=== PATIENT | male | born 1970 | race Caucasian/White ===

== ENCOUNTER 2017-03-19 04:07 | Inpatient (IN) | payer BC ==
[~2017-03-19] VITALS: Ht 167.6 cm; Wt 86.6 kg
[2017-03-19 04:15] VITALS: BP_SYST 121
[2017-03-19] MEDS ORDERED: KETOROLAC TROMETHAMINE 30 MG VIAL IVP ONE (04:45)
[2017-03-19] MEDS ORDERED: NS 1000 ML BAG IV ONE (04:45)
[2017-03-19] MEDS ORDERED: AMOX500C2 PO (04:47)
[2017-03-19] MEDS ORDERED: IBUP-1480 PO (04:48)
[2017-03-19] MEDS ORDERED: [UNRECOGNIZED DRUG - CODE] PO (04:49)
[2017-03-19] MEDS ORDERED: ACET-2165 PO (04:49)
[2017-03-19 05:16] LABS: BASOPHILS % (AUTO) 0.2 % (0.0-2.0); HEMATOCRIT 38.8 % (36-54); HEMOGLOBIN 13.1 g/dL (14.0-18.0); LYMPHOCYTES % (AUTO) 8.4 % (20.5-51.5); MEAN CORPUSCULAR HEMOGLOBIN 31 pg (27-31); MEAN CORPUSCULAR HGB CONC 34 % (32-36); MEAN CORPUSCULAR VOLUME 93 fL (79.0-98.0); MONOCYTES # (AUTO) 1.5 K/uL (0.0-1.0); NEUTROPHILS # (AUTO) 9.4 K/uL (1.8-7.7); NEUTROPHILS % (AUTO) 78.4 % (40.0-70.0); PLATELET COUNT (AUTO) 108 K/uL (130-430); RED BLOOD CELL COUNT(AUTO) 4.19 MIL/uL (4.2-6.2); RED CELL DISTRIBUTION WIDTH 12.4 % (9.0-15.0); WHITE BLOOD COUNT (AUTO) 11.9 K/uL (4.8-10.8)
[2017-03-19 05:25] LABS: CALCIUM 8.1 mg/dL (8.4-11.0); CREATININE 1.51 mg/dL (0.55-1.30); POTASSIUM 3.2 mmol/L (3.5-5.1)
[2017-03-19 05:28] LABS: PROTHROMBIN TIME 10.7 SECS (9.5-12.5)
[2017-03-19 05:30] LABS: ALBUMIN 2.5 g/dL (3.4-4.8); TOTAL BILIRUBIN 2.6 mg/dL (0.0-1.0); TOTAL PROTEIN, SERUM 6.6 g/dL (6.4-8.3)
[2017-03-19] MEDS ORDERED: fentaNYL CITRATE/PF 100 MCG/2 ML AMP IVP ONE (06:45)
[2017-03-19] MEDS ORDERED: NACL 0.9% 2,000 ML IV ONE (06:45)
[2017-03-19 06:50] LABS: BILIRUBIN,URINE 1+ (NEGATIVE); BLOOD, URINE 2+ (NEGATIVE); CLARITY/URINE CLEAR (CLEAR); COLOR,URINE YELLOW (YELLOW); GLUCOSE,URINE NEGATIVE (NEGATIVE); KETONES,URINE NEGATIVE (NEGATIVE); LEUKOCYTE ESTERASE ,URINE NEGATIVE (NEGATIVE); NITRITE, URINE NEGATIVE (NEGATIVE); PH,URINE 5.5 (5.0-8.0); PROTEIN URINE 1+ (NEGATIVE)
[2017-03-19 07:00] LABS: BACTERIA,URINE MODERATE /HPF (None Seen); RBC,URINE 0-3 /HPF (0-3); WBC,URINE 0-3 /HPF (0-3)
[2017-03-19] MEDS ORDERED: POTASSIUM CHLORIDE 20 MEQ TAB.PRT.SR PO ONE (07:00)
[2017-03-19] MEDS ORDERED: ACETAMINOPHEN 325 MG TABLET PO PRN (07:15)
[2017-03-19] MEDS: NACL 0.9% 1,000 ML IV SCH ×4 (07:50→22:15)
[2017-03-19 07:53] VITALS: BP_SYST 115
[2017-03-19] MEDS ORDERED: cefTRIAXone 1 GM IVPB PREMIX 50 ML IV SCH (09:00)
[2017-03-19] MEDS: LEVOFLOXACIN 500 MG/D5W 100 ML IV SCH (10:27)
[2017-03-19] MEDS ORDERED: HYDROmorphone 1 MG INJ. 1 MG/ML AMPUL IVP ONE ×2 (12:30→14:15)
[2017-03-19 12:33] VITALS: BP_SYST 122
[2017-03-19] MEDS ORDERED: IBUPROFEN 800 MG TABLET PO PRN (14:00)
[2017-03-19] MEDS ORDERED: ONDANSETRON HCL 4 MG/2 ML VIAL IVP PRN (14:15)
[2017-03-19 16:06] LABS: CSF APPEARANCE CLOUDY (CLEAR); CSF GLUCOSE 51 mg/dL (40-70)
[2017-03-19 17:08] VITALS: BP_SYST 121
[2017-03-19 17:12] LABS: CSF COLOR RED (COLORLESS)
[2017-03-19 17:13] LABS: CSF PROTEIN 84 mg/dL (15-45)
[2017-03-19 17:55] LABS: BILIRUBIN,URINE NEGATIVE (NEGATIVE); BLOOD, URINE 1+ (NEGATIVE); CLARITY/URINE SL HAZY (CLEAR); COLOR,URINE YELLOW (YELLOW); GLUCOSE,URINE NEGATIVE (NEGATIVE); KETONES,URINE NEGATIVE (NEGATIVE); LEUKOCYTE ESTERASE ,URINE NEGATIVE (NEGATIVE); NITRITE, URINE NEGATIVE (NEGATIVE); PH,URINE 5.5 (5.0-8.0); PROTEIN URINE TRACE (NEGATIVE)
[2017-03-19 18:25] LABS: BARBITURATE, URINE NEGATIVE (NEG <=200); BENZODIAZEPINE, URINE NEGATIVE (NEG <=150); CANNABINOID, URINE NEGATIVE (NEG <=50); COCAINE, URINE NEGATIVE (NEG <=150); METHAMPHETAMINES SCREEN,URINE NEGATIVE (NEG <=500); OPIATE, URINE POSITIVE (NEG <=100); PHENCYCLIDINE SCREEN,URINE NEGATIVE (NEG <=25); UR TRICYCLIC ANTIDEPRESSANTS NEGATIVE (NEG <=300); URINE AMPHETAMINE NEGATIVE (NEG <=500); URINE METHADONE NEGATIVE (NEG <=200); URINE OXYCODONE SCREEN NEGATIVE (NEG <=100); URINE PROPOXYPHENE SCREEN NEGATIVE (NEG <=300)
[2017-03-19 18:40] LABS: BACTERIA,URINE FEW /HPF (None Seen); MUCUS,URINE 1+ /LPF (None Seen); WBC,URINE 0-3 /HPF (0-3)
[2017-03-19 19:06] LABS: CSF LYMPHOCYTES 14 % (40-60); CSF MONOCYTES 18 % (15-45); CSF NEUTROPHILS 68 % (0-6); CSF RED BLOOD CELL COUNT #1 77111 /uL (0-0); CSF WHITE BLOOD CELL COUNT #1 35 /uL (0-5)
[2017-03-19 19:32] LABS: CSF RED BLOOD CELL COUNT #4 1159 /uL (0-0); CSF WHITE BLOOD CELL COUNT #4 29 /uL (0-5)
[2017-03-19 19:33] LABS: CSF LYMPHOCYTES #4 12 % (40-60); CSF MONOCYTES #4 15 % (15-45); CSF NEUTROPHILS #4 73 % (0-6)
[2017-03-19 20:00] VITALS: BP_SYST 142
[2017-03-19] MEDS: HYDROmorphone 1 MG INJ. 1 MG/ML AMPUL IVP PRN (21:56)
[2017-03-19] MEDS: POTASSIUM CHLORIDE 20 MEQ/PKT PACKET PO SCH (21:58)
[2017-03-19] MEDS ORDERED: cefTRIAXone 1 GM VIAL ONE (22:02)
[2017-03-19] MEDS: ACETAMINOPHEN 325 MG TABLET PO PRN (22:03)
[2017-03-19] MEDS ORDERED: VANCOMYCIN HCL 1000 MG/VIAL IV ONE (22:03)
[2017-03-19] MEDS ORDERED: VANCOMYCIN HCL 500 MG/VIAL IV ONE (22:03)
[2017-03-19] MEDS ORDERED: ACYCLOVIR SODIUM 50 MG/ML VIAL IV ONE (22:20)
[2017-03-19] MEDS ORDERED: DIPHENHYDRAMINE INJ 50 MG/ML VIAL IVP PRN (23:00)
[2017-03-19] MEDS: ACYCLOVIR IV SCH (23:30)
[2017-03-19] MEDS: NS IV SCH (23:30)
[2017-03-20] VITALS (7 sets, daily range): BP systolic 116–130
[2017-03-20] MEDS: VANCOMYCIN HCL 1,250 MG in NS 250 ML IV SCH ×3 (01:00→22:08)
[2017-03-20] MEDS: NACL 0.9% 1,000 ML IV SCH ×4 (03:15→18:09)
[2017-03-20] MEDS ORDERED: ACYCLOVIR SODIUM 50 MG/ML VIAL IV ONE (05:59)
[2017-03-20] MEDS: NS IV SCH ×3 (06:21→22:07)
[2017-03-20] MEDS: ACYCLOVIR IV SCH ×3 (06:21→22:07)
[2017-03-20 07:31] LABS: C-REACTIVE PROTEIN QUANT 7.9 mg/dL (0-0.5); CALCIUM 7.2 mg/dL (8.4-11.0); CREATININE 1.22 mg/dL (0.55-1.30); POTASSIUM 3.5 mmol/L (3.5-5.1); TOTAL BILIRUBIN 1.2 mg/dL (0.0-1.0); TOTAL PROTEIN, SERUM 5.5 g/dL (6.4-8.3)
[2017-03-20 07:34] LABS: HEMATOCRIT 32.5 % (36-54); HEMOGLOBIN 11.1 g/dL (14.0-18.0); MEAN CORPUSCULAR HEMOGLOBIN 32 pg (27-31); MEAN CORPUSCULAR HGB CONC 34 % (32-36); MEAN CORPUSCULAR VOLUME 93 fL (79.0-98.0); PLATELET COUNT (AUTO) 139 K/uL (130-430); RED CELL DISTRIBUTION WIDTH 12.4 % (9.0-15.0)
[2017-03-20 07:56] LABS: WHITE BLOOD COUNT (AUTO) 11.9 K/uL (4.8-10.8)
[2017-03-20] MEDS: HYDROmorphone 1 MG INJ. 1 MG/ML AMPUL IVP PRN (07:58)
[2017-03-20] MEDS: POTASSIUM CHLORIDE 20 MEQ/PKT PACKET PO SCH ×2 (08:05→20:11)
[2017-03-20] MEDS: ACETAMINOPHEN 325 MG TABLET PO PRN ×2 (08:07→20:11)
[2017-03-20 08:37] LABS: ERYTHROCYTE SEDIMENTATION RATE 34 MM/HR (0-15)
[2017-03-20] MEDS: LEVOFLOXACIN 500 MG/D5W 100 ML IV SCH (09:19)
[2017-03-20 09:55] LABS: ATYPICAL LYMPHOCYTES % 3 % (0-0); BAND % (MANUAL) 3 % (0-6); BASOPHILS % (MANUAL) 0 % (0-2); EOSINOPHILS % (MANUAL) 0 % (0-7); LYMPHOCYTES % (MANUAL) 1 % (20-46); MONOCYTES % (MANUAL) 18 % (0-11)
[2017-03-20] MEDS: TEMAZEPAM 15 MG CAPSULE PO SCH (20:18)
[2017-03-21] MEDS: NACL 0.9% 1,000 ML IV SCH ×5 (00:19→18:57)
[2017-03-21 03:47] VITALS: BP_SYST 118
[2017-03-21] MEDS: NS IV SCH ×3 (05:01→21:22)
[2017-03-21] MEDS: ACYCLOVIR IV SCH ×3 (05:01→21:22)
[2017-03-21 07:46] LABS: PROTHROMBIN TIME 11.2 SECS (9.5-12.5)
[2017-03-21 07:48] VITALS: BP_SYST 131
[2017-03-21] MEDS: LEVOFLOXACIN 500 MG/D5W 100 ML IV SCH (09:34)
[2017-03-21] MEDS: ACETAMINOPHEN 325 MG TABLET PO PRN (09:36)
[2017-03-21] MEDS: POTASSIUM CHLORIDE 20 MEQ/PKT PACKET PO SCH ×2 (09:36→20:54)
[2017-03-21] MEDS ORDERED: IBUPROFEN 200 MG TABLET PO PRN (09:45)
[2017-03-21] MEDS ORDERED: DOXYCYCLINE HYCLATE 100 MG CAPSULE PO ONE (10:30)
[2017-03-21 12:58] VITALS: BP_SYST 127
[2017-03-21 17:04] VITALS: BP_SYST 124
[2017-03-21] MEDS: IBUPROFEN 600 MG TABLET PO PRN (19:49)
[2017-03-21] MEDS: DOXYCYCLINE HYCLATE 100 MG CAPSULE PO SCH (20:53)
[2017-03-21] MEDS: PANTOPRAZOLE SODIUM 40 MG TAB PO SCH (20:53)
[2017-03-21] MEDS: TEMAZEPAM 15 MG CAPSULE PO SCH ×2 (20:54→21:21)
[2017-03-22 01:06] VITALS: BP_SYST 127
[2017-03-22] MEDS: NACL 0.9% 1,000 ML IV SCH ×5 (03:49→20:34)
[2017-03-22 04:00] VITALS: BP_SYST 146
[2017-03-22 04:25] LABS: HEPATITIS A AB, IgM Negative (Negative); HEPATITIS B CORE AB, IgM Negative (Negative); HEPATITIS B SURFACE AG Negative (Negative)
[2017-03-22] MEDS: NS IV SCH ×3 (05:15→21:37)
[2017-03-22] MEDS: ACYCLOVIR IV SCH ×3 (05:15→21:37)
[2017-03-22 06:58] LABS: HEMATOCRIT 32.4 % (36-54); MEAN CORPUSCULAR HEMOGLOBIN 32 pg (27-31); MEAN CORPUSCULAR HGB CONC 34 % (32-36); MEAN CORPUSCULAR VOLUME 93 fL (79.0-98.0); PLATELET COUNT (AUTO) 204 K/uL (130-430); RED BLOOD CELL COUNT(AUTO) 3.48 MIL/uL (4.2-6.2); RED CELL DISTRIBUTION WIDTH 12.9 % (9.0-15.0); WHITE BLOOD COUNT (AUTO) 11.5 K/uL (4.8-10.8)
[2017-03-22 07:18] LABS: EBV AB VCA, IgM <36.0 U/mL (0.0-35.9)
[2017-03-22 07:25] LABS: BILIRUBIN,DIRECT 0.3 mg/dL (0.0-0.3); CALCIUM 7.5 mg/dL (8.4-11.0); CREATININE 0.99 mg/dL (0.55-1.30); TOTAL BILIRUBIN 0.7 mg/dL (0.0-1.0); TOTAL PROTEIN, SERUM 5.8 g/dL (6.4-8.3)
[2017-03-22 07:48] LABS: BASOPHILS % (MANUAL) 0 % (0-2); EOSINOPHILS % (MANUAL) 4 % (0-7); LYMPHOCYTES % (MANUAL) 25 % (20-46); MONOCYTES % (MANUAL) 5 % (0-11)
[2017-03-22] MEDS: PANTOPRAZOLE SODIUM 40 MG TAB PO SCH ×2 (08:19→20:48)
[2017-03-22] MEDS: POTASSIUM CHLORIDE 20 MEQ/PKT PACKET PO SCH ×2 (08:19→20:48)
[2017-03-22] MEDS: DOXYCYCLINE HYCLATE 100 MG CAPSULE PO SCH ×2 (08:19→20:48)
[2017-03-22 08:20] VITALS: BP_SYST 138
[2017-03-22] MEDS: IBUPROFEN 600 MG TABLET PO PRN ×2 (08:34→16:53)
[2017-03-22 09:14] LABS: EBV AB VCA, IgG <18.0 U/mL (0.0-17.9)
[2017-03-22 10:52] LABS: FERRITIN 1234 ng/mL (30-400)
[2017-03-22 11:16] LABS: VDRL, CSF Non Reactive (Non Rea:<1:1)
[2017-03-22 12:33] VITALS: BP_SYST 117
[2017-03-22] MEDS ORDERED: IOHEXOL 100 ML IV ONE (12:46)
[2017-03-22 16:52] VITALS: BP_SYST 125
[2017-03-22 19:07] LABS: ANTI NUCLEAR AB WITH REFLEX Negative (Negative)
[2017-03-22 19:45] VITALS: BP_SYST 138
[2017-03-22] MEDS ORDERED: TEMAZEPAM 15 MG CAPSULE PO SCH (21:00)
[2017-03-22] MEDS ORDERED: LOPERAMIDE HCL 2 MG CAPSULE PO ONE (21:15)
[2017-03-22] MEDS ORDERED: LACTOBACILLUS RHAMNOSUS GG 1 CAP CAPSULE PO ONE (21:15)
[2017-03-22] MEDS: metroNIDAZOLE 500 MG TABLET PO SCH (21:22)
[2017-03-22] MEDS ORDERED: LOPERAMIDE HCL 2 MG CAPSULE PO PRN (21:30)
[2017-03-23 02:25] VITALS: BP_SYST 154
[2017-03-23] MEDS: NACL 0.9% 1,000 ML IV SCH ×2 (02:57→10:08)
[2017-03-23 05:11] VITALS: BP_SYST 130
[2017-03-23] MEDS: NS IV SCH ×2 (05:32→13:42)
[2017-03-23] MEDS: ACYCLOVIR IV SCH ×2 (05:32→13:42)
[2017-03-23] MEDS: metroNIDAZOLE 500 MG TABLET PO SCH ×2 (05:38→15:37)
[2017-03-23] MEDS: IBUPROFEN 600 MG TABLET PO PRN (05:39)
[2017-03-23 06:41] LABS: BASOPHILS % (AUTO) 0.2 % (0.0-2.0); EOSINOPHILS # (AUTO) 0.2 K/uL (0.0-0.4); EOSINOPHILS % (AUTO) 1.3 % (0.0-4.0); HEMATOCRIT 32.8 % (36-54); HEMOGLOBIN 11.1 g/dL (14.0-18.0); LYMPHOCYTES % (AUTO) 23.6 % (20.5-51.5); MEAN CORPUSCULAR HEMOGLOBIN 31 pg (27-31); MEAN CORPUSCULAR HGB CONC 34 % (32-36); MEAN CORPUSCULAR VOLUME 92 fL (79.0-98.0); MONOCYTES # (AUTO) 1.2 K/uL (0.0-1.0); MONOCYTES % (AUTO) 9.8 % (1.7-9.3); NEUTROPHILS # (AUTO) 8.3 K/uL (1.8-7.7); NEUTROPHILS % (AUTO) 65.1 % (40.0-70.0); PLATELET COUNT (AUTO) 260 K/uL (130-430); RED BLOOD CELL COUNT(AUTO) 3.56 MIL/uL (4.2-6.2); RED CELL DISTRIBUTION WIDTH 12.8 % (9.0-15.0); WHITE BLOOD COUNT (AUTO) 12.7 K/uL (4.8-10.8)
[2017-03-23 06:53] LABS: CALCIUM 7.6 mg/dL (8.4-11.0); POTASSIUM 3.8 mmol/L (3.5-5.1)
[2017-03-23 08:30] VITALS: BP_SYST 131
[2017-03-23] MEDS: POTASSIUM CHLORIDE 20 MEQ/PKT PACKET PO SCH (10:08)
[2017-03-23] MEDS: DOXYCYCLINE HYCLATE 100 MG CAPSULE PO SCH (10:08)
[2017-03-23] MEDS: LACTOBACILLUS RHAMNOSUS GG 1 CAP CAPSULE PO SCH ×2 (10:08→15:37)
[2017-03-23] MEDS: PANTOPRAZOLE SODIUM 40 MG TAB PO SCH (10:08)
[2017-03-23 12:00] VITALS: BP_SYST 136
[2017-03-23 13:13] LABS: WEST NILE VIRUS, IgG, SERUM Negative (Negative)
[2017-03-23 16:45] VITALS: BP_SYST 118
[2017-03-23 17:25] VITALS: BP_SYST 118
[2017-03-23] MEDS ORDERED: ACYC400T PO (18:02)
[2017-03-23] MEDS ORDERED: DOXY-4 PO (18:03)
== END 2017-03-23 18:26 | disposition home or self-care (01) | DRG 98 ==
LOC: SED 04:07 → STU 07:01
PROVIDERS: ADMIT Internal Medicine; ATTEND Internal Medicine
PROC: 009U3ZX Drainage of Spinal Canal, Percutaneous Approach, Diagnostic (ICD-10-PCS; principal; 2017-03-19)
PROC: B01BZZZ Fluoroscopy of Spinal Cord (ICD-10-PCS; 2017-03-19)
DX: G03.0 Nonpyogenic meningitis (principal); E87.1 Hypo-osmolality and hyponatremia; B34.9 Viral infection, unspecified; R74.0 Nonspecific elevation of levels of transaminase and lactic acid dehydrogenase [LDH]; J20.9 Acute bronchitis, unspecified; E86.0 Dehydration; D69.6 Thrombocytopenia, unspecified; D64.9 Anemia, unspecified; K74.60 Unspecified cirrhosis of liver; K76.0 Fatty (change of) liver, not elsewhere classified; G47.00 Insomnia, unspecified; W57.XXXA Bitten or stung by nonvenomous insect and other nonvenomous arthropods, initial encounter; Y93.89 Activity, other specified; Y92.89 Other specified places as the place of occurrence of the external cause; Y99.8 Other external cause status
CPT/HCPCS: 36415; 62270; 70450-TC; 70491-TC; 71010; 71250-TC; 76700-TC; 80048; 80053; 80074; 80076; 80307; 81000-TC; 82248-TC; 82728; 82947-TC; 83605; 84157-TC; 85007; 85025; 85027; 85048; 85610-TC; 85651-TC; 85730-TC; 86038; 86140; 86308-TC; 86592; 86665; 86694; 86788; 86789; 87040-TC; 87070-TC; 87081; 87086; 87205-TC; 87230-TC; 87899; 89051-TC; 93005; 96374; 96375; 99285; G0480; J0133; J0696; J1170; J1885; J1956; J3010; J3370; J7030; J7050; J7060; Q9967

== ENCOUNTER 2023-06-16 02:28 | Emergency (ER) | payer BC ==
[~2023-06-16] VITALS: Ht 167.6 cm; Wt 90.7 kg
[~2023-06-16 02:28] MED LIST: ACET325T PO; ACYC400T19 PO; DOXY100C PO; IBUP-1970 PO; [UNRECOGNIZED DRUG - CODE] PO
[2023-06-16 02:43] VITALS: BP_SYST 127; PULSE 67; RESP 17; TEMP 98; O2SAT 98
[2023-06-16] MEDS ORDERED: KETOROLAC TROMETHAMINE 15 MG VIAL IVP ONE (03:00)
[2023-06-16] MEDS ORDERED: ONDANSETRON HCL 4 MG/2 ML VIAL IVP ONE (03:00)
[2023-06-16 03:42] LABS: BASOPHILS % (AUTO) 0.4 % (0.0-2.0); EOSINOPHILS # (AUTO) 0.3 K/uL (0.0-0.4); EOSINOPHILS % (AUTO) 3.1 % (0.0-4.0); HEMATOCRIT 40.2 % (36-54); HEMOGLOBIN 13.4 g/dL (14.0-18.0); LYMPHOCYTES # (AUTO) 2.7 K/uL (1.0-5.5); LYMPHOCYTES % (AUTO) 29.5 % (20.5-51.5); MEAN CORPUSCULAR HEMOGLOBIN 31 pg (27-31); MEAN CORPUSCULAR HGB CONC 33 % (32-36); MEAN CORPUSCULAR VOLUME 94 fL (79.0-98.0); MONOCYTES # (AUTO) 1.1 K/uL (0.0-1.0); MONOCYTES % (AUTO) 12.1 % (1.7-9.3); NEUTROPHILS # (AUTO) 5.1 K/uL (1.8-7.7); NEUTROPHILS % (AUTO) 54.9 % (40.0-70.0); PLATELET COUNT (AUTO) 190 K/uL (130-430); RED BLOOD CELL COUNT(AUTO) 4.28 MIL/uL (4.2-6.2); WHITE BLOOD COUNT (AUTO) 9.2 K/uL (4.8-10.8)
[2023-06-16 04:03] LABS: CALCIUM 8.2 mg/dL (8.4-11.0); CREATININE 1.04 mg/dL (0.55-1.30); POTASSIUM 3.7 mmol/L (3.5-5.1)
[2023-06-16 04:09] LABS: ALBUMIN 3.3 g/dL (3.4-4.8); TOTAL BILIRUBIN 0.5 mg/dL (0.0-1.0); TOTAL PROTEIN, SERUM 6.7 g/dL (6.4-8.3)
[2023-06-16 05:47] LABS: BILIRUBIN,URINE NEGATIVE (NEGATIVE); CLARITY/URINE Clear (CLEAR); COLOR,URINE YELLOW (YELLOW); GLUCOSE,URINE NEGATIVE (NEGATIVE); KETONES,URINE NEGATIVE (NEGATIVE); LEUKOCYTE ESTERASE ,URINE NEGATIVE (NEGATIVE); NITRITE, URINE NEGATIVE (NEGATIVE); PROTEIN URINE NEGATIVE (NEGATIVE); UROBILINOGEN,URINE 0.2 (0.2-1.0)
[2023-06-16 05:59] LABS: BLOOD, URINE NEGATIVE (NEGATIVE)
[2023-06-16] MEDS ORDERED: ACET-2634 PO (06:22)
[2023-06-16] MEDS ORDERED: IBUP-1969 PO (06:22)
[2023-06-16] MEDS ORDERED: CYCL10TA24 PO (06:22)
[2023-06-16 06:37] VITALS: BP_SYST 119; PULSE 58; RESP 18; TEMP 97.6; O2SAT 97
== END 2023-06-16 06:37 | disposition home or self-care (01) ==
LOC: SED 02:28
DX: R10.31 Right lower quadrant pain (principal); R11.0 Nausea; M79.18 Myalgia, other site; Z79.899 Other long term (current) drug therapy
CPT/HCPCS: 99285; 74176; 96374; 96375; 80053; 83690; 85025; 36415; 76376; 81003; J2405